=== PATIENT | male | born 1965 | race Two or more races ===

== ENCOUNTER 2017-01-11 14:15 | Emergency (ER) ==
[2017-01-11 14:21] VITALS: BP 138/89; TEMP 98.4; BMI 26.6
[2017-01-11] MEDS ORDERED: EYE-STREAM OP STA (14:28)
[2017-01-11] MEDS ORDERED: FLUORETS OP STA (14:28)
[2017-01-11] MEDS ORDERED: PROPARACAINE 0.5% OP STA (14:28)
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
== END 2017-01-11 16:27 | disposition home or self-care (01) ==
LOC: ED 14:15
DX: S05.01XA Injury of conjunctiva and corneal abrasion without foreign body, right eye, initial encounter (principal); S05.02XA Injury of conjunctiva and corneal abrasion without foreign body, left eye, initial encounter
CPT/HCPCS: 99283

== ENCOUNTER 2017-03-13 16:42 | Outpatient (CLI) | END 2017-03-13 16:43 | disposition left against medical advice (07) | LOC: AMBL 16:42 | PROVIDERS: ATTEND Emergency Medicine | DX: Z04.1 Encounter for examination and observation following transport accident (principal) ==

== ENCOUNTER 2017-03-18 13:48 | Emergency (ER) ==
[2017-03-18 13:59] VITALS: BP 133/91; TEMP 99.1; BMI 25.8
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
== END 2017-03-18 15:30 | disposition home or self-care (01) ==
LOC: ED 13:48
DX: M25.512 Pain in left shoulder (principal); V49.40XA Driver injured in collision with unspecified motor vehicles in traffic accident, initial encounter
CPT/HCPCS: 99283

== ENCOUNTER 2017-05-06 13:09 | Outpatient (CLI) ==
[2017-05-06 13:21] LABS: BASOPHILS # (AUTO) 0.1 K/uL (0-0.2); EOSINOPHILS # (AUTO) 0.1 K/ul (0.0-0.7); EOSINOPHILS % (AUTO) 2.1 % (0.0-7.0); HEMATOCRIT 37.8 % (42.0-52.0); HEMOGLOBIN 13.2 g/dl (14.0-18.0); IMMATURE GRANULOCYTE % (AUTO) 0.5 % (0.0-5.0); LYMPHOCYTES # (AUTO) 1.9 K/uL (0.60-3.4); LYMPHOCYTES % (AUTO) 30.8 (10.0-50.0); MEAN CORPUSCULAR HEMOGLOBIN 32.8 pg (27.0-31.0); MEAN CORPUSCULAR HGB CONC 34.9 (31.8-35.4); MONOCYTES # (AUTO) 0.5 K/uL (0.4-2.0); MONOCYTES % (AUTO) 8.4 (0-10); NEUTROPHILS # (AUTO) 3.6 K/ul (2.0-6.9); NEUTROPHILS % (AUTO) 57.2; PLATELET COUNT 284 10^3/uL (140-440); RED BLOOD COUNT 4.02 10^6/ul (4.70-6.10); WHITE BLOOD COUNT 6.21 K/ul (4.2-10.2)
[2017-05-06 14:27] LABS: ALBUMIN 3.6 g/dL (3.4-5.0); ALBUMIN/GLOBULIN RATIO 1.2; ANION GAP 12.6; BILIRUBIN,TOTAL 0.23 mg/dL (0.00-1.20); BUN/CREATININE RATIO 26.74; CALCIUM 8.9 mg/dL (8.2-10.2); CHOL/HDL RATIO 3.5 (4.5-6.4); CREATININE 0.86 mg/dL (0.60-1.10); POTASSIUM 4.6 mmol/L (3.5-5.1); TOTAL PROTEIN 6.6 g/dL (6.4-8.2)
== END 2017-05-06 13:10 | disposition home or self-care (01) ==
LOC: LAB 13:09
PROVIDERS: ATTEND Nurse Practitioner Family
DX: R53.83 Other fatigue (principal); E78.5 Hyperlipidemia, unspecified; Z12.5 Encounter for screening for malignant neoplasm of prostate
CPT/HCPCS: 36415; 80053; 80061; 84443; 85025

== ENCOUNTER 2017-05-10 08:55 | Outpatient (CLI) ==
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
== END 2017-05-10 08:56 | disposition home or self-care (01) ==
LOC: RAD 08:55
PROVIDERS: ATTEND Nurse Practitioner Family
DX: R22.9 Localized swelling, mass and lump, unspecified (principal)

== ENCOUNTER 2017-10-04 12:21 | Emergency (ER) ==
[2017-10-04 12:28] VITALS: BP 150/91; TEMP 95.9; BMI 25.1
[2017-10-04] MEDS ORDERED: NORCO 10-325 PO STA (13:20)
--- NOTE | 2017-10-04 13:59 | DI ---
EXAM: LEFT ELBOW HISTORY: Fall, pain FINDINGS: Left elbow three-view. At least mild not moderate arthropathy of the joints. There is no evidence of displaced fracture or joint effusion. Soft tissues within normal limits. IMPRESSION: No fracture or dislocation.
--- NOTE | 2017-10-04 14:19 | CT ---
EXAM: CT left shoulder without contrast HISTORY: Fall, pain COMPARISON: None TECHNIQUE: CT left shoulder performed without intravenous contrast. Coronal and sagittal reformatte d images obtained. FINDINGS: No fracture or dislocation. Mild osteoarthritis of the acromioclavicular joint with joint space narrowing osteophyte formation. Mild osteoarthritis glenohumeral joint with joint space narro wing osteophyte formation. Small cystic change proximal humerus. Minimal calcification near the gre ater tuberosity and about the shoulder, consistent with minimal calcific tendonitis. Minimal emphysem atous change. IMPRESSION: 1. No fracture or dislocation. 2. Osteoarthritis. Small cystic change proximal humerus may relate to osteoarthritis or rotator cuf f pathology. Minimal calcific tendonitis. 3. Minimal emphysema.
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
== END 2017-10-04 14:38 | disposition home or self-care (01) ==
LOC: ED 12:21
DX: M67.912 Unspecified disorder of synovium and tendon, left shoulder (principal); W00.0XXA Fall on same level due to ice and snow, initial encounter
CPT/HCPCS: 99283

== ENCOUNTER 2017-10-10 08:36 | Outpatient (CLI) ==
--- NOTE | 2017-10-10 10:33 | MRI ---
EXAM: MRI left shoulder without contrast COMPARISON: CT of the left shoulder 10/04/2017. Left shoulder radiographs 03/18/2017. HISTORY: Shoulder pain and decreased range of motion. Slipped on ice down stairs last Tuesday. TECHNIQUE: Multiplanar noncontrast MR images of the left shoulder were acquired using a 1.2 Crystal ma gnet. Several sequences are mildly limited by patient motion artifact and several sequences were repe ated. FINDINGS: There is marked supraspinatus and subscapularis as well as moderate infraspinatus tendinos is. Partial-thickness articular surface/rim rent tear of the supraspinatus most pronounced anteriorl y and measuring up to 6 mm medial to lateral dimension with tear involving approximately 50% of the t endon thickness. Smaller component extends posteriorly through the insertional fibers of the infrasp inatus with intrasubstance component extending through the critical zone. Minimal linear intrasubsta nce fissuring/tearing of the distal subscapularis. There is marrow edema with cystic change and dege nerative spurring of the greater tuberosity at the attachment of the rotator cuff. Small foci of bolivar cification involving the anterior portion of the greater tuberosity along the attachment the supraspi natus as well as some soft tissue calcifications along the insertional fibers of the infraspinatus wong ggesting underlying calcific tendonitis/bursitis. There is mild cortical irregularity involving the anterior portion the greater tuberosity at the attachment of the supraspinatus and superimposed flake avulsion fracture at that site is not entirely excluded. Small amount of fluid in the subacromial/wong bdeltoid and subcoracoid bursa most pronounced anteriorly with small foci of susceptibility artifacts suggesting calcific bursitis. Moderate glenohumeral joint osteoarthrosis without an acute fracture or dislocation. Limited assessm ent of the glenoid labrum on this non arthrographic study with suspected intrasubstance degeneration. Diminished size of the posterior labrum which may be degenerative in nature. Small glenohumeral rita int effusion. The long head of the biceps is located within the bicipital groove with mild tendinosis and tenosynov itis. Marked hypertrophic degenerative changes of the acromioclavicular joint. No evidence of an os acromi cayden or abnormal widening of the acromioclavicular joint space. No soft tissue mass identified. IMPRESSION: 1. Marked rotator cuff tendinosis. Partial-thickness/rim rent tear of the insertional fibers of the supraspinatus and infraspinatus as described, most pronounced along the anterior insertional fibers of the supraspinatus. Underlying component of calcific tendonitis/bursitis as well as question of fl lennie avulsion fracture of the far anterior portion of the greater tuberosity. Minimal linear intrasub stance fissuring/tearing of the subscapularis. No full-thickness rotator cuff tear or tendon retract ion. 2. Fluid in the subacromial/subdeltoid and subcoracoid bursa with suspected component of calcific bu rsitis. 3. Moderate glenohumeral joint osteoarthrosis. Suspected degenerative change of the glenoid labrum on this non arthrographic study. 4. Marked hypertrophic degenerative changes of the acromioclavicular joint.
== END 2017-10-10 08:37 | disposition home or self-care (01) ==
LOC: RAD 08:36
PROVIDERS: ATTEND Nurse Practitioner Family
DX: M25.512 Pain in left shoulder (principal); W00.9XXA Unspecified fall due to ice and snow, initial encounter

== ENCOUNTER 2018-05-17 13:04 | Emergency (ER) ==
[2018-05-17 13:07] VITALS: BP 143/83; TEMP 99.2; BMI 22.1
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
--- NOTE | 2018-05-17 14:28 | CT ---
EXAM: CT abdomen pelvis without contrast HISTORY: Left hip abscess COMPARISON: CT abdomen pelvis 10/28/2014 TECHNIQUE: Serial axial images of the abdomen pelvis were performed from the lung bases through the inferior pelvis without contrast. These were viewed in multiple planes. FINDINGS: Lung bases are clear. Evaluation is very limited due to lack of contrast. The liver is unchanged with low attenuation in t he right hepatic dome measuring 1.6 cm in diameter with Hounsfield units consistent with a cyst. The re is an additional low attenuation lesion likely representing an adrenal lesion measuring 3.1 x 2.3 cm on image 20, with Hounsfield units consistent with an adenoma. The adrenal glands are unremarkabl e. The gallbladder is nondistended. The right kidney demonstrates a punctate nonobstructing 0.1 cm stone in the inferior pole. The left kidney demonstrates two punctate 0.1 cm stones in the mid pole. The spleen is unremarkable. The pancreas is unremarkable. The stomach is mildly distended. Small bowel in the abdomen pelvis is unremarkable. The appendix is normal. The colon is unremarkabl e. The urinary bladder is distended. The prostate is prominent with central calcifications. There i s significant degenerative disease of the lumbosacral spine. Limited evaluation of the proximal aspect of the left hip demonstrates no focal fluid collection. Th ere is degenerative disease of the left hip with no acute osseous abnormality. IMPRESSION: 1. No visualized abscess in the left hip. 2. Stable right hepatic cyst and right adrenal adenoma. 3. Nonobstructing renal stones.
== END 2018-05-17 14:50 | disposition home or self-care (01) ==
LOC: ED 13:04
DX: L02.211 Cutaneous abscess of abdominal wall (principal); F17.210 Nicotine dependence, cigarettes, uncomplicated
CPT/HCPCS: 87070; 87186; 99283

== ENCOUNTER 2018-05-26 12:54 | Emergency (ER) ==
[2018-05-26 13:00] VITALS: BP 145/73; TEMP 98.7; BMI 22.8
--- NOTE | 2018-05-26 14:56 | CT ---
EXAM: CT of the right hand with IV contrast HISTORY: Pain, edema COMPARISON: None available TECHNIQUE: Axial CT of the right hand with IV contrast. Sagittal and coronal reformats were obtained . FINDINGS: There is an acute fracture of the fifth distal metacarpal/neck minimal medial displacement and mild a pex posterior medial angulation. No other acute fracture or dislocation is identified. Multiple smal l ossicles ARE identified adjacent to several carpal bones. The most prominent adjacent to the scaph oid measuring 4 mm. Small ossicles are also seen at the first CMC joint. There is mild narrowing of the second and third MCP joint with marginal osteophyte formation. No gross osseous erosive changes are identified. There is subcutaneous edema of the dorsal aspect of the hand, most prominent medially . There is mild focal fluid adjacent to the distal aspect of the fifth metacarpal measuring 3 mm in t hickness. No other fluid collection is identified. IMPRESSION: Mildly comminuted, minimally displaced, mildly angulated fracture of the fifth metacarpal neck. Minimal fluid adjacent to the distal aspect of the fifth metacarpal measuring 3 mm in thickness could represent hematoma. An infectious etiology would be difficult to exclude. Dorsal subcutaneous edema which could represent cellulitis. Multiple small ossicles of the wrist which may be degenerative or related to remote injury. 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
--- NOTE | 2018-05-26 15:09 | ED.PDOC ---
General ED Provider: Dr. STEVAN SOLANO Chief Complaint: Hand Pain/Injury Stated Complaint: right hand pain Time Seen by Physician: 13:00 Mode of Arrival: Walk-In Information Source: Patient Exam Limitations: No limitations [facility] Nursing and Triage Documentation Reviewed and Agree: Yes Does patient meet sepsis criteria?: No System Inflammatory Response Syndrome: Not Applicable Sepsis Protocol: For patient's 13 years and over: Temp is 96.8 and below OR 101 and greater Pulse >90 BPM Resp >20/minute Acutely Altered Mental Status Are patient's symptoms suggestive of a new infection, such as: -Pneumonia -Skin, Soft Tissue -Endocarditis -UTI -Bone, Joint Infection -Implantable Device -Acute Abdominal Infection -Wound Infection -Meningitis -Blood Stream Catheter Infection -Unknown Musculoskeletal Complaint Exam - Hand/Wrist Complaint/Exam Location of Pain: Reports: Right, Hand Mechanism of Injury: Reports: Trauma (right had blunt force ) Onset/Duration: 1 day Symptoms Are: Still present Onset of Pain: Reports: Hours Initial Severity: Moderate Current Severity: Mild Location: Reports: Discrete Character: Reports: Aching Alleviating: Reports: Rest Aggravating: Reports: Movement Associated Signs and Symptoms: Reports: Swelling, Redness (dorsal right hand ) Dominant Hand: Right Related Surgical History: Reports: None Hand/Wrist Findings: Present: Swelling Differential Diagnoses: Closed Fracture Review of Systems - Review Of Systems Constitutional: Reports: No symptoms Eyes: Reports: No symptoms Ears, Nose, Mouth, Throat: Reports: No symptoms Respiratory: Reports: No symptoms Cardiac: Reports: No symptoms GI: Reports: No symptoms : Reports: No symptoms Musculoskeletal: Reports: Other (right hand pain) Skin: Reports: No symptoms Neurological: Reports: No symptoms Endocrine: Reports: No symptoms Hematologic/Lymphatic: Reports: No symptoms All Other Systems: Reviewed and Negative Past Medical History - Past Medical History Previously Healthy: Yes Endocrine: Reports: None Cardiovascular: Reports: None Respiratory: Reports: None Hematological: Reports: None Gastrointestinal: Reports: None Genitourinary: Reports: None Neuro/Psych: Reports: None Musculoskeletal: Reports: Other (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)) Cancer: Reports: None - Surgical History General Surgical History: Reports: Orthopedic (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)) - Family History Family History: Reports: Unknown - Social History Smoking Status: Current every day smoker, Light tobacco smoker Hx Substance Use: No Alcohol Screening: None Physical Exam - Physical Exam Appearance: Well-appearing, No pain distress, Well-nourished Eyes: GEOFFREY, EOMI, Conjunctiva clear ENT: Ears normal, Nose normal, Oropharynx normal Respiratory: Airway patent, Breath sounds clear, Breath sounds equal, Respirations nonlabored Cardiovascular: RRR, Pulses normal, No rub, No murmur GI/: Soft, Nontender, No masses, Bowel sounds normal, No Organomegaly Musculoskeletal: Normal strength, ROM intact, No edema, No calf tenderness Skin: Warm, Dry (hand is swollen minimaly) Neurological: Sensation intact, Motor intact, Reflexes intact, Cranial nerves intact, Alert, Oriented Psychiatric: Affect appropriate, Mood appropriate Interpretation - Radiology Interpretation Radiology Interpretation By: Radiologist Radiology Results: Positive (fx of the 5th metcarpel) Critical Care Note - Critical Care Note Total Time (mins): 0 Course - Course Hematology/Chemistry: 05/26/18 13:15 Orders, Labs, Meds: Lab Review 05/26/18 13:15 Sodium 140 Potassium 4.0 Chloride 108 H Carbon Dioxide 24 Anion Gap 12.0 BUN 16 Creatinine 1.03 Estimated GFR (MDRD) 76.00 BUN/Creatinine Ratio 15.53 Glucose 96 Calcium 8.7 Total Bilirubin 1.3 AST 300 H ALT 469 H Alkaline Phosphatase 94 Total Protein 6.7 Albumin 3.6 Globulin 3.1 Albumin/Globulin Ratio 1.16 Orders Category Date Time Status NPO REMINDER: IMAGING ONCE CARE 05/26/18 13:11 Active COMPREHENSIVE METABOLIC PANEL Stat LAB 05/26/18 13:[address] HAND RIGHT WITH CONTRAST Stat RADS 05/26/18 13:11 Completed Vital Signs: Temp Pulse Resp BP Pulse Ox 05/26/18 12:55 98.7 F 99 H 20 145/73 H 98 Departure - Departure Time of Disposition: 15:09 Disposition: HOME SELF-CARE Discharge Problem: Hand pain Instructions: Hand Fracture (ED) Condition: Good Pt referred to PMD for follow-up: Yes IPMP verified?: No Additional Instructions: Please call your Family Physician as soon as possible to schedule a follow-up appointment. Allergies/Adverse Reactions: Allergies tramadol HCl [From Ultram] Allergy (Mild, Verified 05/26/18 12:59) N/V, stomach pain Home Medications: Ambulatory Orders 1 [No Reported Medications] 05/26/18
== END 2018-05-26 15:25 | disposition home or self-care (01) ==
LOC: ED 12:54
DX: S62.336A Displaced fracture of neck of fifth metacarpal bone, right hand, initial encounter for closed fracture (principal); W22.8XXA Striking against or struck by other objects, initial encounter; F17.210 Nicotine dependence, cigarettes, uncomplicated
CPT/HCPCS: 36415; 80053; 99283

== ENCOUNTER 2018-06-18 16:59 | Outpatient (CLI) | END 2018-06-18 17:06 | disposition critical access hospital (66) | LOC: AMBL 16:59 | PROVIDERS: ATTEND Emergency Medicine | DX: S41.111A Laceration without foreign body of right upper arm, initial encounter (principal); S51.811A Laceration without foreign body of right forearm, initial encounter; W45.8XXA Other foreign body or object entering through skin, initial encounter; W10.9XXA Fall (on) (from) unspecified stairs and steps, initial encounter ==

== ENCOUNTER 2018-09-26 14:35 | Emergency (ER) ==
[2018-09-26 14:42] VITALS: BP 137/84; TEMP 98.3; BMI 23.6
--- NOTE | 2018-09-26 15:40 | ED.PDOC ---
General ED Provider: Dr. KRISTAN PARK Chief Complaint: Back Pain Stated Complaint: Acute Lt Hip and lower back pain. Onset for two days. Denied known injury. Awakened with pain yesterday. Localized lt lower back without radiation. Time Seen by Physician: 15:05 Mode of Arrival: Walk-In Information Source: Patient Exam Limitations: No limitations Primary Care Provider: ASHLI BRAND Referred to ED by: PCP Nursing and Triage Documentation Reviewed and Agree: Yes Does patient meet sepsis criteria?: No System Inflammatory Response Syndrome: Not Applicable Sepsis Protocol: For patient's 13 years and over: Temp is 96.8 and below OR 101 and greater Pulse >90 BPM Resp >20/minute Acutely Altered Mental Status Are patient's symptoms suggestive of a new infection, such as: -Pneumonia -Skin, Soft Tissue -Endocarditis -UTI -Bone, Joint Infection -Implantable Device -Acute Abdominal Infection -Wound Infection -Meningitis -Blood Stream Catheter Infection -Unknown Musculoskeletal Complaint Exam - Back Pain Complaint/Exam Mechanism of Injury: Reports: No known trauma Onset/Duration: 1 wk Symptoms Are: Still present Timing: Intermittent Episodes Lasting: Hours Initial Severity: Moderate Current Severity: Moderate Location: Reports: Discrete, Radiating Character: Reports: Aching, Spasmodic, Stiffness, Burning Aggravating: Reports: Movements, Bending Alleviating: Reports: Rest Associated Signs and Symptoms: Reports: Numbness. Denies: Swelling, Redness, Bruising, Fever, Weakness, Tingling, Abdominal pain, Flank pain, Bladder incontinence, Bowel incontinence, Weight loss, Pain with weight bearing Related History: Denies: Similar episode TAD Risk Factors: Reports: None AAA Risk Factors: Reports: None Cauda Equina Risk Factors: Reports: None Epidural Abcess Risk Factors: Reports: None Related Surgical History: Reports: None Focal Tenderness: Yes (lt SI) Paraspinal Muscle Tenderness: Yes (Tenderness) Paraspinal Muscle Spasm: No Scoliosis: No Lordosis: No Kyphosis: No SLR Test: Right Negative, Left Negative Hip Motion Testing Pain: Right Negative, Left Positive, Left Negative Focal Weakness: Present: None Focal Sensory Loss: Present: None Gait: Present: Abnormal Differential Diagnoses: Arthritis, Strain Review of Systems - Review Of Systems Constitutional: Reports: No symptoms Eyes: Reports: No symptoms Ears, Nose, Mouth, Throat: Reports: No symptoms Respiratory: Reports: No symptoms Cardiac: Reports: No symptoms GI: Reports: No symptoms : Reports: No symptoms Musculoskeletal: Reports: Back pain, Joint pain Skin: Reports: No symptoms Neurological: Reports: No symptoms Endocrine: Reports: No symptoms Hematologic/Lymphatic: Reports: No symptoms All Other Systems: Reviewed and Negative Past Medical History - Past Medical History Previously Healthy: Yes Endocrine: Reports: None Cardiovascular: Reports: None Respiratory: Reports: None Hematological: Reports: None Gastrointestinal: Reports: None Genitourinary: Reports: None Neuro/Psych: Reports: None Musculoskeletal: Reports: Other (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)) Cancer: Reports: None - Surgical History General Surgical History: Reports: Orthopedic (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)) - Family History Family History: Reports: Unknown - Social History Smoking Status: Current some day smoker Hx Substance Use: No Alcohol Screening: None - Immunizations Tetanus Shot up to Date: Yes Physical Exam - Physical Exam Appearance: Well-appearing Ill-appearing: None Pain Distress: Moderate Eyes: GEOFFREY, EOMI, Conjunctiva clear ENT: Ears normal, Nose normal, Oropharynx normal Neck: Supple Respiratory: Airway patent, Breath sounds clear, Breath sounds equal, Respirations nonlabored Cardiovascular: RRR, Pulses normal, No rub, No murmur GI/: Soft, Nontender, No masses, Bowel sounds normal, No Organomegaly Musculoskeletal: Normal strength, ROM intact, No edema, No calf tenderness Skin: Warm, Dry, Normal color Neurological: Sensation intact, Motor intact, Reflexes intact, Cranial nerves intact, Alert, Oriented Psychiatric: Affect appropriate, Mood appropriate Interpretation - Radiology Interpretation Radiology Interpretation By: Radiologist Exam Interpreted: CT Scan Xray Comments: Lumbar spine and pelvis-degenerative arthritis Re-Evaluation - Re-Evaluation Time of Re-Evaluation: 16:30 Status: Improved Vital Signs Stable: Yes Appearance: NAD Lungs: Clear Skin: Warm and Dry Neuro: Alert and Oriented X3 CV: RRR Critical Care Note - Critical Care Note Total Time (mins): 0 Course - Course Orders, Labs, Meds: Orders Category Date Time Status Diazepam [Valium] MEDS 09/26/18 15:43 Discontinued 5 mg PO ONCE STA Ketorolac Tromethamine [Toradol] MEDS 09/26/18 15:42 Discontinued 30 mg IM ONCE STA CT LUMBAR SPINE W/O CONTRAST Stat RADS 09/26/18 15:[address] PELVIS W/O CONTRAST Stat RADS 09/26/18 15:41 Completed Medications Discontinued Medications Generic Name Dose Route Start Last Admin Trade Name Shreyas PRN Reason Stop Dose Admin Diazepam 5 mg 09/26/18 15:43 09/26/18 16:17 Valium PO 09/26/18 15:44 5 mg ONCE STA Administration Ketorolac Tromethamine 30 mg 09/26/18 15:42 09/26/18 16:17 Toradol IM 09/26/18 15:43 30 mg ONCE STA Administration Vital Signs: Temp Pulse Resp BP Pulse Ox 09/26/18 14:37 98.3 F 86 22 137/84 96 Departure - Departure Time of Disposition: 18:40 Disposition: HOME SELF-CARE Discharge Problem: Low back pain, Degenerative arthritis, Hip pain, left Instructions: Osteoarthritis (ED), Low Back Strain (ED), Lower Back Exercises ( ED) Condition: Good Pt referred to PMD for follow-up: Yes IPMP verified?: No Additional Instructions: May increase Gabapentin 300 mg 3 times daily May continue Tramadol for pain as neede. See PCP in 1 week Allergies/Adverse Reactions: Allergies tramadol HCl [From Ultram] Allergy (Mild, Verified 09/26/18 14:45) N/V, stomach pain Disposition Discussed With: Patient
[2018-09-26] MEDS ORDERED: TORADOL IM STA (15:42)
[2018-09-26] MEDS ORDERED: VALIUM PO STA (15:43)
--- NOTE | 2018-09-26 16:35 | CT ---
Exam: CT lumbar spine without intravenous contrast. Comparison: 05/10/2017. Reason for exam: Pain. FINDINGS: No acute fracture or listhesis. The vertebral body and intervertebral body disc space hei ghts are well maintained. There is preservation of the lumbar lordotic curve. Mild degenerative dis ease is seen with osteophyte formation and facet hypertrophy. T12-L1: No significant central canal or foraminal narrowing. L1-L2: No significant central canal or foraminal narrowing. L2-L3: Facet hypertrophy resulting in mild central canal and foraminal narrowing. L3-L4: Broad-based disc bulge with impression on the thecal sac and facet hypertrophy resulting in m ild to moderate central canal and foraminal narrowing. L4-L5: Broad-based disc bulge with impression on the thecal sac and facet hypertrophy resulting in mi ld to moderate central canal and foraminal narrowing. L5-S1: Broad-based disc bulge with impression on the thecal sac and facet hypertrophy resulting in m ild central canal and foraminal narrowing. 2.7 cm hypodensity in the hepatic parenchyma on axial image number 40 does not appear significantly c hanged when compared to previous imaging. Impression: 1. No acute fracture or listhesis in the lumbar spine. 2. Mild multilevel degenerative disease. 3. Partially imaged hepatic hypodensity similar appearance to the previous study
--- NOTE | 2018-09-26 16:36 | CT ---
Exam: CT of the pelvis without intravenous contrast. Comparison: CT abdomen pelvis performed 05/17/2018. Reason for exam: Left zoe pelvis and hip pain. FINDINGS: The pelvic ring is intact. No acute fracture or malalignment. The left and right femoral heads articulate with the acetabulum with mild degenerative disease. Diverticular disease is seen w ithin the rectosigmoid without surrounding inflammatory change. There is a moderate stool burden in the rectal vault. Calcifications are seen within the prostate. Impression: 1. No acute fracture or malalignment in the pelvis. 2. Mild degenerative disease in both hips. 3. Prostatic calcifications. 4. Moderate stool burden in the rectal vault. 5. Diverticulosis without evidence of diverticulitis
== END 2018-09-26 16:56 | disposition home or self-care (01) ==
LOC: ED 14:35
DX: M54.5 Low back pain (principal); M25.552 Pain in left hip; M19.90 Unspecified osteoarthritis, unspecified site; F17.210 Nicotine dependence, cigarettes, uncomplicated
CPT/HCPCS: 96372; 99282